=== PATIENT | female | born 1940 | race Caucasian/White ===

== ENCOUNTER 2017-06-15 14:14 | Emergency (ER) | payer BC ==
[~2017-06-15] VITALS: Ht 160 cm; Wt 51.4 kg
[2017-06-15 14:56] VITALS: Ht 160 cm; Wt 51.4 kg
--- NOTE | 2017-06-15 15:58 | ERD ---
ER Documentation Chief Complaint Chief Complaint RIGHT GROIN/THIGH PAIN S/P TRIP & FALL YESTERDAY, UNABLE TO WEIGH BARE HPI 76y/o female patient with history of hypertension,presents to the emergency department with her son c/o right hip pain located anteriorly, that started 1 day ago after a forced hyperextension due to a near fall. pain is sharp, rated 6 /10, radiated to the anterior hip. The symptoms are associated with decreased range of motion and antalgic gait. Denies trauma, no fever, chills, N/V/D. No history of previous episodes. Treatment attempted: none ROS SYSTEMIC symptoms: no fever, chills, no night sweats, no weight loss EYE symptoms: No blurred vision, no eye discharge OTOLARYNGEAL symptoms: No hearing loss. No ear pain, no sore throat CARDIOVASCULAR symptoms: No chest pain or discomfort, no palpitations. PULMONARY symptoms: No dyspnea, no cough, no wheezing. GASTROINTESTINAL symptoms: No abdominal pain, no nausea, no vomiting, no diarrhea MUSCULOSKELETAL symptoms: Per HPI NEUROLOGY symptoms: No confusion, no syncope, no numbness or tingling. SKIN no rashes All systems reviewed and are negative except as per history of present illness. Allergies Allergies: Coded Allergies: diphenhydramine (Unverified Allergy, Unknown, DIZZY, 06/15/17) PMhx/Soc The patient denies history of diabetes or coronary artery disease Physical Exam Vitals Vital Signs Date Time Temp Pulse Resp B/P Pulse Ox O2 Delivery O2 Flow Rate FiO2 06/15/17 14:56 99.3 67 16 164/86 95 Physical Exam Patient is in no acute distress, vital signs stable. Alert and fully oriented. EYES: PERRLA, EOMI, Sclera and conjunctiva appear normal. EARS: Canals clear, tympanic membranes WNL THROAT: Normal oropharynx. NECK: Supple, No lymphadenopathy. Full ROM without pain or tenderness. HEART: RRR, no rubs, murmurs, clicks or gallops. LUNGS: Clear to auscultation. ABDOMEN: Soft, non-tender without masses or hepatosplenomegaly. EXTREMITIES: No edema bilaterally. MUSC: Right hip: Normal inspection, no deformity, tender to palpation over iliofemoral band, decreased range of motion for hip abduction. Neurovascular exam intact Procedures/MDM 76y/o female patient history of hypertension, presents to the ED c/o right hip pain since yesterday. Vital signs stable, Physical exam: Unremarkable, neurovascular exam intact. Differential diagnosis include but not limited to: Acute ligament/tendon sprain, arthrosis, septic arthritis, low suspicion for fracture, hip dislocation. Pertinent Data: X-Rays: [06] Physical examination and clinical presentation consistent most likely with []. During the ED course the patient received treatment with [] presenting overall improvement of the symptoms. Results and clinical impression discussed with [] who agrees with management. The patient is stable to be treated outpatient and will be discharged home with a Rx for [] Side effects of prescribed narcotic medications (drowsiness, constipation, habituation) were reviewed. Side effects of prescribed muscle relaxants (drowsiness, habituation) were reviewed. Side effects of prescribed NSAID medication (GI distress, edema, bleeding, HTN) were reviewed. If symptoms persist, worsen or new symptoms develop, then patient is instructed to follow-up with the primary care provider. If the patient is unable to see the primary care provider, then return to the ED immediately. Departure Condition: Stable OLEG WRIGHT MD Jun 15, 2017 15:58
[2017-06-15] MEDS ORDERED: HYDR-906 PO (16:51)
--- NOTE | 2017-06-15 18:17 | RADRPT ---
PROCEDURE: XR Pelvis. CLINICAL INDICATION: Acute anterior right hip pain TECHNIQUE: Single supine AP view of the pelvis. COMPARISON: Right hip series 06/15/2017 FINDINGS: Subtle cortical irregularity involving the right superior and inferior pubic rami concerning for non displaced fractures. Moderate symmetric joint space narrowing of the hips is noted. The femoral hea ds are normal in contour without evidence of avascular necrosis. Diffuse decreased mineralization ca nnot exclude osteopenia or osteoporosis. No focal bone destruction or periosteal reaction is present . Moderate narrowing of the sacroiliac joints and pubic symphysis is seen. RPTAT:HJJR IMPRESSION: 1. Cortical irregularity involving the right superior inferior pubic rami concerning for acute nond isplaced fractures. 2. Demineralization with moderate symmetric bilateral hip joint osteoarthrosis. Physician Bryce Date Time Electronically viewed and signed by Physician Bryce on 06/15/2017 18:16 /
--- NOTE | 2017-06-15 18:18 | RADRPT ---
PROCEDURE: XR Hip. CLINICAL INDICATION: Acute anterior right hip pain TECHNIQUE: AP and frog lateral views of the right hip were performed. COMPARISON: Pelvic x-ray 06/15/2017 FINDINGS: Diffuse decreased mineralization cannot exclude osteopenia or osteoporosis. Cortical irregularity in volving the superior greater than inferior pubic ramus concerning for acute nondisplaced fractures. The femoral head is normal in contour with moderate narrowing of the right hip joint. There is no ev idence of joint dislocation. The soft tissues are unremarkable. . RPTAT:HJJR IMPRESSION: 1. Demineralization with concern for a nondisplaced, closed right superior and inferior pubic rami f ractures. 2. Moderate osteoarthrosis of the right hip joint. Physician Bryce Date Time Electronically viewed and signed by Physician Bryce on 06/15/2017 18:18 JR/
== END 2017-06-15 18:58 | disposition home or self-care (01) ==
LOC: FTE 14:14
DX: S32.501A Unspecified fracture of right pubis, initial encounter for closed fracture (principal); X50.9XXA Other and unspecified overexertion or strenuous movements or postures, initial encounter; Y92.9 Unspecified place or not applicable
CPT/HCPCS: 72170; 73510

== ENCOUNTER 2018-12-20 18:17 | Emergency (ER) | payer BC, OTHER ==
[~2018-12-20] VITALS: Ht 162.6 cm; Wt 50.9 kg
[~2018-12-20 18:17] MED LIST: HYDR-4011 PO
[2018-12-20 18:29] VITALS: Ht 162.6 cm; Wt 50.9 kg
[2018-12-20] MEDS ORDERED: KETOROLAC 15 MG INJ IV STA (20:02)
[2018-12-20] MEDS ORDERED: IBUP-1561 PO (21:55)
[2018-12-20] MEDS ORDERED: CEPH-443 PO (21:55)
--- NOTE | 2018-12-20 21:59 | ERD ---
ER Documentation Chief Complaint Chief Complaint C/O LT FOOT PAIN AND SWELLING X3 DAYS, DENIES ANY INJURY HPI 78-year-old female presents with some left foot pain and redness and swelling for the last 3 days patient has a history of trauma. Started while stepping up a staircase. Denies any fevers, vomiting, shortness of breath. Denies skin changes or additional inciting events. ROS All systems reviewed and are negative except as per history of present illness. Medications Home Meds Active Scripts Cephalexin* (Keflex*) 500 Mg Capsule, 500 MG PO QID for 7 Days, CAP Prov:GABRIELA GARCIA MD 12/20/18 Ibuprofen* (Motrin*) 400 Mg Tab, 400 MG PO Q6, #20 TAB Prov:GABRIELA GARCIA MD 12/20/18 Hydrocodone/Acetaminophen ([place] 5-325 Tablet) 1 Each Tablet, 1 TAB PO Q8 PRN for SEVERE PAIN LEVEL 7-10, #12 TAB Prov:OLEG WRIGHT MD 06/15/17 Allergies Allergies: Coded Allergies: diphenhydramine (Unverified Allergy, Unknown, DIZZY, 06/15/17) PMhx/Soc Medical and Surgical Hx: pt denies Surgical Hx History of Surgery: No Anesthesia Reaction: No Hx Neurological Disorder: No Hx Respiratory Disorders: No Hx Cardiac Disorders: Yes (htn) Hx Psychiatric Problems: No Hx Miscellaneous Medical Probl: Yes (gouty athritis) Hx Alcohol Use: No Hx Substance Use: No Hx Tobacco Use: No Smoking Status: Never smoker FmHx Family History: No diabetes, No coronary disease, No other Physical Exam Vitals Vital Signs Date Temp Pulse Resp B/P (MAP) Pulse Ox O2 O2 Flow FiO2 Time Delivery Rate 12/20/18 98.2 66 19 139/78 93 Room Air 22:28 (98) 12/20/18 99.6 70 19 177/89 96 18:29 (118) Physical Exam Const: No acute distress Head: Atraumatic Eyes: Normal Conjunctiva ENT: Normal External Ears, Nose and Mouth. Neck: Full range of motion. No meningismus. Resp: Clear to auscultation bilaterally Cardio: Regular rate and rhythm, no murmurs Abd: Soft, non tender, non distended. Normal bowel sounds Skin: No petechiae or rashes Back: No midline or flank tenderness Ext: No cyanosis, or edema. Left first metatarsal phalangeal joint swelling and redness which is blanching. No significant warmth. No restricted range of motion weakness or deficits. Neur: Awake and alert Psych: Normal Mood and Affect Result Diagram: 12/20/18201612/20/182016 Results 24 hrs Laboratory Tests Test 12/20/18 20:17 White Blood Count 11.3 10^3/ul Red Blood Count 4.24 10^6/ul Hemoglobin 12.5 g/dl Hematocrit 38.9 % Mean Corpuscular Volume 91.7 fl Mean Corpuscular Hemoglobin 29.5 pg Mean Corpuscular Hemoglobin Concent 32.1 g/dl Red Cell Distribution Width 13.3 % Platelet Count 317 10^3/UL Mean Platelet Volume 10.1 fl Immature Granulocytes % 0.400 % Neutrophils % 81.2 % Lymphocytes % 10.6 % Monocytes % 6.7 % Eosinophils % 0.4 % Basophils % 0.7 % Nucleated Red Blood Cells % 0.0 /100WBC Immature Granulocytes # 0.040 10^3/ul Neutrophils # 9.2 10^3/ul Lymphocytes # 1.2 10^3/ul Monocytes # 0.8 10^3/ul Eosinophils # 0.0 10^3/ul Basophils # 0.1 10^3/ul Nucleated Red Blood Cells # 0.0 10^3/ul Erythrocyte Sedimentation Rate 78 mm/Hr Sodium Level 142 mmol/L Potassium Level 3.9 mmol/L Chloride Level 104 mmol/L Carbon Dioxide Level 29 mmol/L Anion Gap 9 Blood Urea Nitrogen 15 mg/dl Creatinine 1.11 mg/dl Est Glomerular Filtrat Rate mL/min mL/min Glucose Level 127 mg/dl Uric Acid 7.9 mg/dl Calcium Level 11.9 mg/dl C-Reactive Protein 8.8 mg/dl Current Medications Medications Dose Sig/[place] Start Time Status Last (Trade) Ordered Route PRN Stop Time Admin Dose Reason Admin Ketorolac 15 mg ONCE STAT 12/20/18 DC 12/20/18 Tromethamine IV 20:02 20:34 (Toradol) 12/20/18 20:04 Ceftriaxone 50 ml @ ONCE ONCE 12/20/18 DC 12/20/18 Sodium 100 mls/hr IVPB 22:00 21:59 12/20/18 22:29 8 mg ONCE ONCE 12/20/18 DC 12/20/18 Dexamethasone IV 22:00 22:07 (Decadron) 12/20/18 22:01 Procedures/MDM X-ray Foot 3V Interpreted by me: Bones: No fracture Joints: No dislocation Foreign body: None impression have degenerative changes of the first MTP joint otherwise no signs of ostium myelitis, fracture, dislocation. CBC shows minimal leukocytosis. Patient has minimal elevation of creatinine. ESR is elevated at 78 and CRP is elevated. Uric acid 7.9 which is borderline high.. Patient given Rocephin 1 g IV as well as Decadron 8 mg IV. Patient administered left postop shoe and neurovascular intact after shoe. Clinically patient has signs and symptoms consistent with gout. Her uric acid is borderline high. She does have an elevated ESR and CRP although additional clinical signs and symptoms do not suggest osteomyelitis or septic arthritis. This will be useful for monitoring purposes for no improvement. We will initiate outpatient treatment with close follow-up. She is advised to recheck the next 2 to 3 days for worsening redness, swelling, fevers, new worsening symptoms may need admission for no improvement or worsening symptoms. Will treat for what appears to be gout currently and close follow-up as directed. She has no signs of fracture, dislocation, ischemia or deficits. The patient was stable with no new complaints during the ER course. Clinically, there is no current evidence to suggest meningitis, sepsis, acute abdomen, pneumonia, stroke, acute coronary syndrome, pulmonary embolism, aortic dissection or any other emergent condition appearing to require further evaluation or hospitalization. Patient counseled regarding my diagnostic impression and care plan. Prior to discharge all questions answered. Pt agrees with treatment plan and understands strict return precautions. Pt is instructed to follow up with primary care provider within 24-48 hours. Precautionary instructions provided including instructions to return to the ER if not improving or for any worsening or changing symptoms or concerns. Disclaimer: Inadvertent spelling and grammatical errors are likely due to EHR/dictation software use and do not reflect on the overall quality of patient care. Also, please note that the electronic time recorded on this note does not necessarily reflect the actual time of the patient encounter. Addendum-call back on 12/21/2018 patient states redness pain much improved since yesterday. She is able ambulate with minimal discomfort. She has not started antibiotics yet. Patient advised to follow-up with primary doctor return for w orsening redness, pain, new worsening symptoms. Departure Diagnosis: Primary Impression: Foot pain Laterality: left Qualified Codes: M79.672 - Pain in left foot Condition: Stable Patient Instructions: Arthralgia Referrals: MONET LOBO MD (PCP) Additional Instructions: May be gout but will treat for infection. Recheck in the next 2 to 3 days for worsening redness or fevers or worsening symptoms. See primary doctor for follow-up. GABRIELA GARCIA MD December 20, 2018 21:59
[2018-12-20] MEDS ORDERED: CEFTRIAXONE 1 GM/50 ML (PMX) 50 ML IVPB ONE (22:00)
[2018-12-20] MEDS ORDERED: DEXAMETHASONE 10 MG/ML 1 ML INJ IV ONE (22:00)
[2018-12-20 22:28] VITALS: BP 139/78; PULSE 66; RESP 19
== END 2018-12-20 22:30 | disposition home or self-care (01) ==
LOC: FTE 18:17
DX: M79.672 Pain in left foot (principal); I10 Essential (primary) hypertension
CPT/HCPCS: 36415; 73630; 80048; 84560; 85025; 85651; 86140; 96374; 96375; 99284; J0696; J1100; J1885